=== PATIENT | male | born 1985 | race Caucasian/White ===

== ENCOUNTER 2020-08-31 20:03 | Emergency (ER) | payer BC, SELFPAY ==
[2020-08-31] VITALS (8 sets, daily range): BP systolic 110–127; BP diastolic 71–90; PULSE 78–84; RESP 16–22; TEMP 36.6; O2SAT 97–100
--- NOTE | ~2020-08-31 | XR_ITS ---
EXAMINATION: XR chest 2V DATE: 08/31/2020 20:51 INDICATION: Left neck, arm, and chest pain. TECHNIQUE: Frontal and lateral views of the chest were obtained. COMPARISON: Chest single view 04/15/2018, chest CT 12/28/2017 FINDINGS: There is mild scarring at the lung apices. No pleural effusion or pneumothorax. The heart s ize is normal. There is a compression fracture in lower thoracic spine. IMPRESSION: 1. Mild scarring at the lung apices. 2. Age-indeterminate compression fracture of lower thoracic spine. Reviewed, dictated and finalized at location A.
--- NOTE | 2020-08-31 20:05 | ECG_ITS ---
Measurements Intervals [place] Rate: 70 P: [place]: 0 QRS: 69 QRSD: 124 T: 68 QT: 370 QTc: 400 Interpretive Statements SINUS OR ECTOPIC ATRIAL RHYTHM INTRAVENTRICULAR CONDUCTION DELAY BORDERLINE ECG Electronically Signed On 09-01-2020 7:00:18 CDT by Rony Loja D.O.
--- NOTE | 2020-08-31 21:15 | ED.GENADULT ---
HPI - General Adult General Chief complaint: Chest Pain Stated complaint: cp and sob Time Seen by Provider: 08/31/20 20:24 Source: patient History of Present Illness HPI narrative: Patient is 35 y/o male complaining of chest pain starting 6-7 hours ago. He describes his pain as someone sitting on the chest and stabbing. He rates his pain as 6-7/10 initially, but 4-5/10 currently. His pain radiates to left arm and left neck. He was given Aspirin and Nitro by EMS. He states that Nitro helped with his pain somewhat. Related Data Home Medications Medication Instructions Recorded Confirmed bupropion HCl 150 mg PO DAILY 08/31/20 Allergies Allergy/AdvReac Type Severity Reaction Status Date / Time No Known Allergies Allergy Verified 09/20/18 02:13 Review of Systems Constitutional: Constitutional: Denies chills, Denies fever(s), Denies headache(s) and Denies weakness Eyes: Eyes: Denies blurry vision ENT: Denies headache(s) and Denies neck pain Cardiovascular: Cardiovascular: Reports chest pain and Reports dyspnea Respiratory: Respiratory: Denies cough and Reports dyspnea Gastrointestinal: Gastrointestinal: Denies abdominal pain, Denies diarrhea, Denies nausea and Denies vomiting Genitourinary: Genitourinary: Denies hematuria and Denies dysuria Musculoskeletal: Musculoskeletal: Denies back pain and Denies neck pain Neurologic: Denies headache(s) and Denies weakness Exam Const: General: no acute distress and well developed Orientation/consciousness: oriented to person, oriented to place, oriented to time and patient oriented x3 HENMT: Head: normocephalic Ears: external ears normal General nose exam: Normal external nose present Eyes: General: appearance normal, both eyes and all related structures Conjunctivae: conjunctivae normal Neck: Neck: normal visual inspection and full ROM Chest: Chest palpation & inspection: normal inspection of the chest and no tenderness Resp: Effort & Inspection: normal respiratory effort Auscultation: clear to auscultation bilaterally Cardio: Rate: regular rate Rhythm: regular rhythm GI: GI Palp: No abdominal tenderness and Yes Soft to palpation Skin: General skin exam: normal color and turgor normal Neuro: General: oriented to person, oriented to place, oriented to time and patient oriented x3 Cognition (Neuro): normal cognition Extrem: General: normal to inspection, full ROM and no pedal edema Psych: Appearance: grossly normal Mental Status: mental status grossly normal Affect: normal affect Course Vital Signs Vital signs: Vital Signs Temperature 36.6 C 08/31/20 20:01 Pulse Rate 84 08/31/20 20:01 Respiratory Rate 16 08/31/20 20:01 Blood Pressure 122/90 08/31/20 20:01 Pulse Oximetry 99 08/31/20 20:01 Temperature 36.8 C 09/01/20 00:08 Pulse Rate 78 09/01/20 00:08 Respiratory Rate 16 09/01/20 00:08 Blood Pressure 124/79 09/01/20 00:08 Pulse Oximetry 100 09/01/20 00:08 Medical Decision Making Vital Signs Vital Signs: Vital Signs Temperature 36.6 C 08/31/20 20:01 Pulse Rate 84 08/31/20 20:01 Respiratory Rate 16 08/31/20 20:01 Blood Pressure 122/90 08/31/20 20:01 Pulse Oximetry 99 08/31/20 20:01 Temperature 36.8 C 09/01/20 00:08 Pulse Rate 78 09/01/20 00:08 Respiratory Rate 16 09/01/20 00:08 Blood Pressure 124/79 09/01/20 00:08 Pulse Oximetry 100 09/01/20 00:08 Lab Data Result diagrams: 08/31/20 21:10 08/31/20 21:10 Labs: Lab Results 08/31/20 08/31/20 08/31/20 Range/Units 21:10 21:10 21:10 WBC 6.1 (4.5-10.0) K/mm3 RBC 4.93 (4.6-6.20) M/mm3 Hgb 14.2 (14.0-18.0) g/dL Hct 41.0 L (42.0-52.0) % MCV 83.2 (80-100) fl MCH 28.8 (26-34) pg MCHC 34.6 (32-36) g/dl RDW 11.9 (11.5-14.5) % Plt Count 233 (150-375) k/mm3 MPV 9.3 (7.4-10.4) fl Immature Gran % (Auto) 0.2 (0-0.5) % Neut % (Auto) 5
[2020-08-31 21:18] LABS: Basophils Percent Auto 0.5 % (0.2-1.2); Eosinophils Absolute Auto 0.1 K/mm3 (0-0.3); Eosinophils Percent Auto 1.2 % (0-4.4); Hemoglobin 14.2 g/dL (14.0-18.0); Immature Granulocyte Absolute 0.01 K/mm3 (0.00-0.031); Immature Granulocyte Percent A 0.2 % (0-0.5); Lymphocytes Absolute Auto 1.97 K/mm3 (0.9-3.2); Lymphocytes Percent Auto 32.5 % (18.3-44.2); Mean Corpuscular HGB Conc 34.6 g/dl (32-36); Mean Corpuscular Hemoglobin 28.8 pg (26-34); Mean Corpuscular Volume 83.2 fl (80-100); Mean Platelet Volume 9.3 fl (7.4-10.4); Monocytes Absolute Auto 0.7 K/mm3 (0.1-0.6); Monocytes Percent Auto 11.2 % (2.6-8.5); Neutrophils Absolute Auto 3.3 K/mm3 (1.3-6.7); Neutrophils Percent Auto 54.4 % (45.5-73.1); Platelet Count Result 233 k/mm3 (150-375); Red Blood Count 4.93 M/mm3 (4.6-6.20); Red Cell Distribution Width 11.9 % (11.5-14.5); White Blood Count 6.1 K/mm3 (4.5-10.0)
[2020-08-31 21:27] LABS: INR 0.9; Prothrombin Time 12.9 Seconds (11.1-14.7)
[2020-08-31 21:28] LABS: Anion Gap 5 mmol/L (8-16); Blood Urea Nitrogen 16 mg/dL (9-20); Calcium 9.2 mg/dL (8.4-10.2); Carbon Dioxide 30 mmol/L (22-30); Chloride 105 mmol/L (98-107); Estimated CRCL calculation 119 ml/min; Estimated Glomerular Filt Rate > 60; Glucose 104 mg/dL (75-110); Partial Thromboplastin Time 26.8 SECONDS (22.3-36.8); Potassium 3.5 mmol/L (3.4-5.0); Sodium 140 mmol/L (137-145)
[2020-08-31 21:37] LABS: D Dimer 0.27 ug/mL (<0.48)
[2020-08-31 21:40] LABS: Troponin I < 0.012 ng/mL (0.000-0.034)
[2020-08-31 23:57] LABS: Troponin I < 0.012 ng/mL (0.000-0.034)
[2020-09-01 00:08] VITALS: BP 124/79; PULSE 78; RESP 16; TEMP 36.8; O2SAT 100
== END 2020-09-01 00:10 | disposition home or self-care (01) ==
PROVIDERS: Emergency Provider Emergency Medicine; PCP Internal Medicine
DX: R07.9 Chest pain, unspecified (principal)
CPT/HCPCS: 36415; 71046; 80048; 84484; 85025; 85380; 85610; 85730; 93005; 99284

== ENCOUNTER 2022-07-10 01:33 | Emergency (ER) | payer BC, SELFPAY ==
[2022-07-10 01:35] VITALS: BP 133/75; PULSE 53; RESP 16; TEMP 36.3; O2SAT 100
[2022-07-10 01:51] LABS: Basophils Percent Auto 0.6 % (0.2-1.2); Eosinophils Absolute Auto 0.1 K/mm3 (0-0.3); Eosinophils Percent Auto 1.5 % (0-4.4); Hematocrit 43.7 % (42.0-52.0); Hemoglobin 14.8 g/dL (14.0-18.0); Immature Granulocyte Absolute 0.01 K/mm3 (0.00-0.031); Immature Granulocyte Percent A 0.1 % (0-0.5); Lymphocytes Absolute Auto 2.63 K/mm3 (0.9-3.2); Lymphocytes Percent Auto 39.1 % (18.3-44.2); Mean Corpuscular HGB Conc 33.9 g/dl (32-36); Mean Corpuscular Hemoglobin 28.6 pg (26-34); Mean Corpuscular Volume 84.5 fl (80-100); Mean Platelet Volume 9.2 fl (7.4-10.4); Monocytes Absolute Auto 0.7 K/mm3 (0.1-0.6); Monocytes Percent Auto 9.8 % (2.6-8.5); Neutrophils Absolute Auto 3.3 K/mm3 (1.3-6.7); Neutrophils Percent Auto 48.9 % (45.5-73.1); Platelet Count Result 255 k/mm3 (150-375); Red Blood Count 5.17 M/mm3 (4.6-6.20); Red Cell Distribution Width 12.1 % (11.5-14.5); White Blood Count 6.7 K/mm3 (4.5-10.0)
[2022-07-10 02:02] LABS: Alanine Aminotransferase 19 U/L (6-50); Albumin Level 4.8 g/dL (3.5-5.1); Alkaline Phosphatase 71 U/L (38-126); Anion Gap 7 mmol/L (8-16); Aspartate Amino Transferase 25 U/L (17-59); Bilirubin,Total 0.5 mg/dL (0.2-1.3); Blood Urea Nitrogen 16 mg/dL (9-20); Calcium 9.3 mg/dL (8.4-10.2); Carbon Dioxide 30 mmol/L (22-30); Chloride 104 mmol/L (98-107); Estimated CRCL calculation 130 ml/min; Estimated Glomerular Filt Rate > 60; Glucose 103 mg/dL (65-110); Potassium 3.8 mmol/L (3.4-5.0); Sodium 141 mmol/L (137-145)
--- NOTE | 2022-07-10 03:08 | ED.GENADULT ---
HPI - General Adult General Chief complaint: Urogenital-Male Stated complaint: urinary discomfort Time Seen by Provider: 07/10/22 02:47 History of Present Illness HPI narrative: Patient 37-year-old gentleman who presents the emergency department with chief complaint of dysuria. Patient reports for the last couple days has noticed that he had some burning and frequency with urination. Patient also reports he had some suprapubic discomfort but denies flank pain denies nausea vomiting patient reports he has had some UTIs in the past patient denies penile discharge reports that there is essentially no risk of exposure to STIs. Related Data Home Medications Medication Instructions Recorded Confirmed bupropion HCl 150 mg PO DAILY 08/31/20 Allergies Allergy/AdvReac Type Severity Reaction Status Date / Time No Known Allergies Allergy Verified 07/10/22 01:33 Review of Systems Review of Systems: A 10 system review of systems was completed on the patient and is negative except for what is stated in the HPI. Nursing and ancillary documentation was reviewed. Exam Narrative: GENERAL: Well-appearing, well-nourished, and in no acute distress. HEAD: Normocephalic, atraumatic. EYES: PERRLA and EOMI. ENT: Nares clear, no rhinorrhea or epistaxis. Mucous membranes moist. NECK: Supple. CHEST: Clear to auscultation. No respiratory distress. HEART: Regular rate and rhythm. No murmur heard. Normal peripheral pulses. ABDOMEN: Soft, nontender, nondistended, normal active bowel sounds. EXTREMITIES: Normal range of motion. No edema. : Normal external male genitalia circumcised no lesions present no penile discharge, no scrotal tenderness no ulcerations, testes are nontender and descended SKIN: Warm, dry, no rash. NEURO: No focal deficits. Alert and oriented x3. PSYCH: Normal mood and affect. Course Vital Signs Vital signs: Vital Signs Temperature 36.3 C L 07/10/22 01:35 Pulse Rate 53 L 07/10/22 01:35 Respiratory Rate 16 07/10/22 01:35 Blood Pressure 133/75 07/10/22 01:35 Pulse Oximetry 100 07/10/22 01:35 Oxygen Delivery Room Air 07/10/22 01:35 Temperature 36.6 C 07/10/22 04:28 Pulse Rate 60 07/10/22 04:28 Respiratory Rate 18 07/10/22 04:28 Blood Pressure 123/59 L 07/10/22 04:28 Pulse Oximetry 99 07/10/22 04:28 Oxygen Delivery Room Air 07/10/22 01:35 Medical Decision Making MDM Narrative Medical decision making narrative: Differential diagnosis includes UTI, kidney stone, urethral trauma Urinalysis showed no red blood cells that showed cloudy urine. Laboratory studies are within normal limits normal white blood cell count electrolytes and liver enzymes were within normal limits. Patient will be started on doxycycline empirically to cover for possible urethritis/UTI Vital Signs Vital Signs: Vital Signs Temperature 36.3 C L 07/10/22 01:35 Pulse Rate 53 L 07/10/22 01:35 Respiratory Rate 16 07/10/22 01:35 Blood Pressure 133/75 07/10/22 01:35 Pulse Oximetry 100 07/10/22 01:35 Oxygen Delivery Room Air 07/10/22 01:35 Temperature 36.6 C 07/10/22 04:28 Pulse Rate 60 07/10/22 04:28 Respiratory Rate 18 07/10/22 04:28 Blood Pressure 123/59 L 07/10/22 04:28 Pulse Oximetry 99 07/10/22 04:28 Oxygen Delivery Room Air 07/10/22 01:35 Lab Data 07/10/22 01:43 07/10/22 01:43 Labs: Lab Results 07/10/22 07/10/22 07/10/22 Range/Units 01:43 01:43 03:19 WBC 6.7 (4.5-10.0) K/mm3 RBC 5.17 (4.6-6.20) M/mm3 Hgb 14.8 (14.0-18.0) g/dL Hct 43.7 (42.0-52.0) % MCV 84.5 (80-100) fl MCH 28.6 (26-34) pg MCHC 33.9 (32-36) g/dl RDW 12.1 (11.5-14.5) % Plt Count 255 (150-375) k/mm3 MPV 9.2 (7.4-10.4) fl Immature Gran % (Auto) 0.1 (0-0.5) % Neut % (Auto) 48.9 (45.5-73.1) % Lymph % (Auto) 39.1 (18.3-44.2) % [place] % (Auto) 9.8 H (2.6-8.5) % Eos % (Auto) 1.5
[2022-07-10] MEDS: SODIUM CHLORIDE 0.9% IV 1,000 ML 999 ML IV CONT (03:19)
[2022-07-10 03:37] LABS: Appearance Urine Cloudy (Clear); Bacteria Urine None Seen /hpf; Bilirubin Urine Negative (Negative); Blood Urine Negative (Negative); Color Urine Yellow (Yellow); Glucose Urine UA Negative (Negative); Ketones Urine Negative (Negative); Leukocyte Esterase Ur Negative LEU/UL (Negative); Nitrate Urine Negative (Negative); Non Pathogenic Casts 0-2; Protein Urine Negative (Negative); RBC Urine 0-2 /hpf (0-2); Specific Grav Ur 1.021 (1.001-1.035); Squamous Epithelial Cell Urine None seen /hpf (Few); Urobilinogen Urine 0.2 mg/dL (<2.0); WBC Urine 0-5 /hpf
[2022-07-10 04:23] LABS: Add Urine Microscopic? YES
[2022-07-10 04:28] VITALS: BP 123/59; PULSE 60; RESP 18; TEMP 36.6; O2SAT 99
[2022-07-10] MEDS: DOXYCYCLINE HYCLATE 100 MG TABLET PO (04:38)
== END 2022-07-10 04:52 | disposition home or self-care (01) ==
PROVIDERS: Emergency Provider Emergency Medicine; PCP Internal Medicine
DX: R30.0 Dysuria (principal)
CPT/HCPCS: 36415; 80053; 81001; 85025; 96360; 99283; A9270; J7030